=== PATIENT | female | born 1985 | race Caucasian/White ===

== ENCOUNTER 2018-11-26 04:15 | Inpatient (IN) | payer BC, MEDICAID ==
[~2018-11-26] VITALS: Ht 155 cm; Wt 79.4 kg
[~2018-11-26 04:15] MED LIST: NALBUPHINE HCL 10 MG/ML AMP IM PRN; NALBUPHINE HCL 10 MG/ML AMP IVP PRN; OXYTOCIN/0.9 % SODIUM CHLORIDE 1,000 ML IV SCH; TERBUTALINE SULFATE 1 MG/ML VIAL SUBCUT ONE
[2018-11-26] MEDS ORDERED: NALBUPHINE HCL 10 MG/ML AMP IM PRN (04:30)
[2018-11-26] MEDS ORDERED: NALBUPHINE HCL 10 MG/ML AMP IVP PRN (04:30)
[2018-11-26 04:41] VITALS: BP_SYST 122
[2018-11-26] MEDS: LR 1,000 ML IV SCH ×3 (04:55→06:41)
[2018-11-26 05:30] LABS: MONOCYTES # (AUTO) 0.6 K/uL (0.0-1.0); NEUTROPHILS # (AUTO) 4.6 K/uL (1.8-7.7); RED CELL DISTRIBUTION WIDTH 15.3 % (9.0-15.0)
[2018-11-26] MEDS ORDERED: ROPIVACAINE HCL/PF 0.2% 200 ML ONE (05:30)
[2018-11-26] MEDS ORDERED: fentaNYL CITRATE/PF 100 MCG/2 ML AMP ONE (05:30)
[2018-11-26 05:37] LABS: BASOPHILS % (AUTO) 0.5 % (0.0-2.0); EOSINOPHILS % (AUTO) 0.3 % (0.0-4.0); HEMATOCRIT 29.7 % (36-48); HEMOGLOBIN 10.2 g/dL (12.0-16.0); LYMPHOCYTES # (AUTO) 1.2 K/uL (1.0-5.5); LYMPHOCYTES % (AUTO) 18.2 % (20.5-51.5); MEAN CORPUSCULAR HEMOGLOBIN 29 pg (27-31); MEAN CORPUSCULAR HGB CONC 34 % (32-36); MEAN CORPUSCULAR VOLUME 85 fL (79.0-98.0); MONOCYTES % (AUTO) 9.1 % (1.7-9.3); NEUTROPHILS % (AUTO) 71.9 % (40.0-70.0); PLATELET COUNT (AUTO) 181 K/uL (130-430); RED BLOOD CELL COUNT(AUTO) 3.49 MIL/uL (4.2-6.2); WHITE BLOOD COUNT (AUTO) 6.4 K/uL (4.8-10.8)
[2018-11-26] MEDS ORDERED: ONDANSETRON HCL 4 MG/2 ML VIAL IVP PRN (06:15)
[2018-11-26] MEDS ORDERED: LR 500 ML IV ONE (06:26)
[2018-11-26] MEDS ORDERED: DIPHENHYDRAMINE INJ 50 MG/ML VIAL IVP PRN (06:30)
[2018-11-26] MEDS ORDERED: FENT2mCg/mL-ROPIVA0.2%/NS EPID 200 ML EP SCH (06:30)
[2018-11-26] MEDS ORDERED: ePHEDrine sulfate 50 MG/ML VIAL IVP PRN (07:30)
[2018-11-26] MEDS ORDERED: ePHEDrine sulfate 50 MG/ML VIAL IVP ONE (08:00)
[2018-11-26] MEDS ORDERED: OXYTOCIN/0.9 % SODIUM CHLORIDE 1,000 ML IV ONE (12:34)
[2018-11-26] MEDS ORDERED: OXYTOCIN/0.9 % SODIUM CHLORIDE 1,000 ML IV SCH (12:34)
[2018-11-26] MEDS ORDERED: WITCH HAZEL LEAF 1 MED.PAD MED.PAD TP PRN (12:45)
[2018-11-26] MEDS ORDERED: DERMOPLAST SPRAY TP PRN (12:45)
[2018-11-26] MEDS ORDERED: ANUSOL 1 EA SUPP.RECT (PREPARATION H) RC PRN (12:45)
[2018-11-26] MEDS ORDERED: HYDROCORTISONE 0.5%, 28.35 GM TOPICAL CREAM TP PRN (12:45)
[2018-11-26] MEDS ORDERED: HYDROcodone/ACETAMIN 5-325 MG TAB (NORCO/ VICODIN) PO PRN ×2 (12:45)
[2018-11-26] MEDS ORDERED: LANOLIN 7 GM OINT. TP PRN (12:45)
[2018-11-26] MEDS ORDERED: METHYLERGONOVINE MALEATE 0.2 MG TABLET PO PRN (12:45)
[2018-11-26] MEDS: DOCUSATE SODIUM 100 MG CAPSULE PO PRN (18:02)
[2018-11-26] MEDS: IBUPROFEN 600 MG TABLET PO PRN (18:02)
[2018-11-26] MEDS ORDERED: TEMAZEPAM 15 MG CAPSULE PO PRN (21:00)
[2018-11-27] MEDS: IBUPROFEN 600 MG TABLET PO PRN ×4 (00:12→12:29)
[2018-11-27] MEDS: DOCUSATE SODIUM 100 MG CAPSULE PO PRN ×2 (06:08→12:29)
[2018-11-27 07:14] LABS: BASOPHILS % (AUTO) 0.3 % (0.0-2.0); EOSINOPHILS % (AUTO) 0.2 % (0.0-4.0); HEMOGLOBIN 8.6 g/dL (12.0-16.0); LYMPHOCYTES # (AUTO) 0.8 K/uL (1.0-5.5); LYMPHOCYTES % (AUTO) 11.9 % (20.5-51.5); MEAN CORPUSCULAR HEMOGLOBIN 28 pg (27-31); MEAN CORPUSCULAR HGB CONC 32 % (32-36); MEAN CORPUSCULAR VOLUME 88 fL (79.0-98.0); MONOCYTES # (AUTO) 0.7 K/uL (0.0-1.0); MONOCYTES % (AUTO) 9.6 % (1.7-9.3); NEUTROPHILS # (AUTO) 5.5 K/uL (1.8-7.7); PLATELET COUNT (AUTO) 158 K/uL (130-430); RED BLOOD CELL COUNT(AUTO) 3.08 MIL/uL (4.2-6.2); RED CELL DISTRIBUTION WIDTH 15.3 % (9.0-15.0); WHITE BLOOD COUNT (AUTO) 7.1 K/uL (4.8-10.8)
[2018-11-27] MEDS ORDERED: DIPH-TET-PERTUS Vaccine 0.5 ML VIAL (ADACEL) I.M. PRN (09:15)
[2018-11-27] MEDS ORDERED: MEASLES,MUMPS&RUBELLA VACC/PF 12500 UNIT/0.5 ML VIAL SUBQ PRN (09:15)
[2018-11-27] MEDS ORDERED: RHO(D) IMMUNE GLOBULIN/MALTOSE 1500 UNITS/1.3 ML (WINHRO) IM PRN (09:15)
[2018-11-27] MEDS ORDERED: FLU VACC QS2019-20 36MOS UP/PF 60 MCG/0.5 ML SYRINGE I.M. PRN (09:30)
[2018-11-27] MEDS ORDERED: IBUP-1969 PO (11:23)
[2018-11-27] MEDS ORDERED: DOCU-144 PO (11:23)
[2018-11-27] MEDS ORDERED: ePHEDrine sulfate 50 MG/ML VIAL IVP ONE (12:55)
== END 2018-11-27 13:55 | disposition home or self-care (01) | DRG 806 ==
LOC: SPU 04:15
PROVIDERS: ADMIT Obstetrics & Gynecology; ATTEND Obstetrics & Gynecology
PROC: 10E0XZZ Delivery of Products of Conception, External Approach (ICD-10-PCS; principal; 2018-11-26)
PROC: 0KQM0ZZ Repair Perineum Muscle, Open Approach (ICD-10-PCS; 2018-11-26)
PROC: 3E0R3BZ Introduction of Anesthetic Agent into Spinal Canal, Percutaneous Approach (ICD-10-PCS; 2018-11-26)
PROC: 00HU33Z Insertion of Infusion Device into Spinal Canal, Percutaneous Approach (ICD-10-PCS; 2018-11-26)
PROC: 3E033VJ Introduction of Other Hormone into Peripheral Vein, Percutaneous Approach (ICD-10-PCS; 2018-11-26)
PROC: 3E0234Z Introduction of Serum, Toxoid and Vaccine into Muscle, Percutaneous Approach (ICD-10-PCS; 2018-11-26)
DX: O70.1 Second degree perineal laceration during delivery (principal); R71.0 Precipitous drop in hematocrit; Z37.0 Single live birth; O43.123 Velamentous insertion of umbilical cord, third trimester; O36.5930 Maternal care for other known or suspected poor fetal growth, third trimester, not applicable or unspecified; O26.893 Other specified pregnancy related conditions, third trimester; Z88.5 Allergy status to narcotic agent; Z91.041 Radiographic dye allergy status; Z3A.38 38 weeks gestation of pregnancy; Z67.11 Type A blood, Rh negative
CPT/HCPCS: 36415; 81002-TC; 85025; 86592; 86870; 86886; 86900; 86901; 90715; J2405; J2590; J2790; J3010; J7120